=== PATIENT | female | born 1965 | race Caucasian/White ===

== ENCOUNTER 2016-04-01 15:22 | Inpatient (IN) | payer MEDICARE ==
--- NOTE | ~2016-04-01 | CR63 ---
[facility] A Service of [facility] RADIOLOGY TEXT RESULTS PATIENT: AYAZ ALLRED LOCATION: [facility] : [birth year] UNIT #: [id number] AGE: [address]: Jarred Aj MD SEX: F ORDER DR: [id number] [facility] [address] [facility]. [place], [place] [address] [id number] I MR#: [id number] Acc #: [id number] NAME: AYAZ ALLRED : 1965 SEX: F STUDY DATE/TIME: 04/02/2016 7:59 UNIT: A PCU ROOM: [facility] STUDY DESCRIPTION: CR Chest 2 View Attending Physician: Sonia Aj M.D. Ordering Physician: Sonia Aj M.D. Primary Care Physician: Nicole Green M.D. MEDICAL IMAGING REPORT This report is preliminary unless electronic signature is present EXAM Two-view chest, 04/02/2016. INDICATION 51-year-old female with COPD, chest pain, vomiting, short of air, diarrhea. Symptoms since yesterday. TECHNIQUE Frontal chest was performed. COMPARISON STUDIES Correlation is made with chest x-ray 04/01/[address] chest 04/01/2016, PE protocol. FINDINGS Cardiac silhouette is within normal limits. The patient is status post aortic valve replacement. Lungs are hyperinflated. Vascularity unremarkable. Calcified granulomas are present. No effusion, pneumothorax, or dense consolidation. IMPRESSION Chronic lung changes. No definite superimposed active disease. Dictated by... Koffi Peñaloza M.D. THIS IS AN ELECTRONICALLY VERIFIED REPORT Koffi Peñaloza M.D. at 04/02/2016 5:45 PM ADOLFO/keon TD: 04/02/2016 12:16 [facility] A Service of [facility] RADIOLOGY TEXT RESULTS PATIENT: AYAZ ALLRED LOCATION: [facility] 331- : [birth year] UNIT #: [id number] AGE: [address]: Jarred Aj MD SEX: F ORDER DR: HERI #: [id number] MEDICAL IMAGING REPORT COPY
--- NOTE | ~2016-04-01 | A ---
[facility] Nutrition Therapy DATE: 04/02/16 Patient: AYAZ ALLRED Physician: RUTH Address: [address] [place] [address] Room/Bed: [address] [place] [address], Zip: [place] [address] Admit Date: 04/01/16 Date of : 65 Height: 5 5 Weight: 119 54.2 NUTRITIONAL ASSESSMENT: REASON: 2 points nutrition screen risk RE: chewing difficulty and eating poorly 51 yo female admitted for chest pain and vomiting, COPD exacerbation PMH: PE, chronic respiratory failure, cholecystectomy, abdominal swelling and distension s/p bowel resection and hernia repair, ?DM, aortic valve replacement, CAD Anthropometrics: HT: 65" Wt: 55.2 kg BMI: 20.3 Labs: Gluc 133 Meds: Solu-medrol, phenergan, NaCl, lopressor, protonix I/O & Bowel function: 720/3, last BM 04/01 Skin Integrity: noted Edema: none noted Diet: Regular Assessment: Chart reviewed, events noted. RD spoke with the pt at bedside. Pt reports decreased appetite and wt loss of unknown amount due to a "stomach bug". Pt reports that she has been having n/v and diarrhea for months now, and is eating better now that she is in the hospital and feelings better. H/o abdominal swelling s/p bowel resection noted. Pt reportedly drinks two Ensure per day when she can afford it. RD will order Ensure BID, provided the pt with coupons. Pt denied having any questions regarding her diet. 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 Intervention: 1. Regular diet 2. Ensure BID Monitoring, Evaluation and Goals: 1. Oral intake; tolerate >50-75% of meals 2. Labs; WNL: HgbA1C, glucose 3. Weight; prevent further weight loss, maintain wt Recommendations: [facility] Nutrition Therapy DATE: 04/02/16 Patient: AYAZ ALLRED Physician: RUTH Address: [address] [place] [address] Room/Bed: [address] [place] [address], Zip: [place] [address] Admit Date: 04/01/16 Date of : [birth year] Height: 5 5 Weight: 119 54.2 1. Continue regular diet. 2. Recommend checking the pt's HgbA1C, as she has a h/o DM; however, previous HgbA1C in [facility] was WNL. If the pt's has elevated blood glucose levels and HgbA1C, recommend adding consistent carbohydrate diet restriction. 3. Ensure vanilla BID for supplemental nutrition. Pt is at mild-moderate nutritional risk. Respectfully, PATTI JORDAN RD, LD Food and Nutritional Services [facility] cc: client file
--- NOTE | ~2016-04-01 | CR72 ---
[facility] A Service of [facility] RADIOLOGY TEXT RESULTS PATIENT: AYAZ ALLRED LOCATION: [facility] 331-01 : [birth year] UNIT #: [id number] AGE: [address]: Jarred Aj MD SEX: F ORDER DR: [id number] [facility] [address] [place], [place] [address] [id number] E MR#: [id number] Acc #: [id number] NAME: AYAZ ALLRED : 1965 SEX: F STUDY DATE/TIME: 04/01/2016 15:11 UNIT: [facility] ROOM: STUDY DESCRIPTION: CR Chest Single View Portable Attending Physician: Raj Giraldo M.D. Ordering Physician: Raj Giraldo M.D. Primary Care Physician: Nicole Green M.D. MEDICAL IMAGING REPORT This report is preliminary unless electronic signature is present EXAM Portable chest. HISTORY Chest pain and dyspnea for 3 days. COMPARISON STUDIES 12/15/2015 FINDINGS A portable view of the chest was obtained. The heart size and vascularity are normal and the lungs are clear. The bones are unremarkable. There is a prosthetic heart valve present. IMPRESSION No active disease. Dictated by... Speedy Cerna M.D. THIS IS AN ELECTRONICALLY VERIFIED REPORT Speedy Cerna M.D. at 04/02/2016 8:24 AM KIMBERLY/keon TD: 04/01/2016 16:53 JOB #: [id number] MEDICAL IMAGING REPORT COPY
--- NOTE | ~2016-04-01 | DS ---
Unit #: [id number] #: [id number] Patient: AYAZ RIVERA [id number] [facility] [place] [facility]. [place], [place] [address] [id number] I MR#: [id number] NAME: AYAZ RIVERA ROOM: 331 Age: 51 Sex: F Admission Date: 04/01/2016 : 1965 Discharge Date: 04/06/2016 Attending Physician: Sonia Aj M.D. Primary Care Physician: Nicole Green M.D. DISCHARGE SUMMARY FINAL DIAGNOSES 1. Acute exacerbation of chronic obstructive pulmonary disease. 2. Severe anxiety syndrome, also status post valve replacement. 3. Hypertension, difficult to control. PROCEDURES PE protocol CT. Ms. Rivera is a 51-year-old female with a history of COPD who was admitted through the ER for exacerbation of CPD. She had very significant anxiety and was given a shot of Haldol one time because of her anxiety. She improved over time and steroids have been decreased and she is ready for discharge. We did have difficulty with blood pressure and in fact her blood pressure was as high as 149/108, today 174/108 yesterday. I am thinking some of this is driven by anxiety, particularly in the hospital setting. She is on metoprolol 25 mg daily; and although we had started Norvasc, I think it would better to simply increase her metoprolol to b.i.d. She will be discharged on 04/06/2016. DISCHARGE MEDICATIONS She will be on the following medicines: 1. DuoNeb q.i.d. and p.r.n. 2. Prednisone 40 mg p.o. daily, decreasing by 10 mg every three days. 3. Lovenox 60 mg subcutaneously b.i.d., which is indeed her home dose. 4. Lyrica 150 mg p.o. t.i.d. 5. Zoloft 100 mg p.o. b.i.d. 6. Phenergan 25 mg p.o. q.6 p.r.n. 7. Bentyl 20 mg p.o. q.4 p.r.n. 8. Seroquel 400 mg p.o. daily. 9. Ambien CR 12.5 p.o. at bedtime. 10. Xanax 2 mg p.o. b.i.d., which supposedly is her home dose. 11. Metoprolol 25 mg p.o. b.i.d. 12. Percocet 10/325 q.6 p.r.n. 13. Protonix 40 mg p.o. daily. 14. Flexeril 10 mg p.o. t.i.d. 15. Doxycycline 100 mg p.o. b.i.d. 16. It is notable that I am not changing any of her anxiety/psychiatric medicines. I am neither condoning nor manipulating these medicines and I leave that completely to her primary doc or psychiatric doc, and will leave her exactly on the medicines that she came in with. FOLLOWUP She should see us in three to four weeks. She should followup with her primary doctor. [place] was fair. Unit #: [id number] #: [id number] Patient: AYAZ RIVERA It is notable further that she did have a reaction to Zithromax, which should have been stopped and she was then changed to doxycycline. It is also notable that there was a libby on her x-ray about pulmonary hypertension. Unfortunately the last echo we have available is 2011 and at that time RVSP is not specifically stated but there was trace tricuspid regurgitation but no mention of pulmonary hypertension. She most likely has another echo, which will need to be tracked down as an outpatient. We will therefore, need to evaluate her for the presence of pulmonary hypertension. If that is indeed substantiated on the echocardiogram. It is furthermore notable that she have a PE protocol CT on arrival I assume, which revealed significant emphysema. She will definitely need another CT on followup in about six months. This will need to be communicated with her. Dictated by... Jose Luis Aranda M.D. GIA/terrance TD: 04/08/2016 08:02 JOB #: [id number] DISCHARGE SUMMARY X Jose Luis Aranda MD DISCHARGE SUMMARY
--- NOTE | ~2016-04-01 | HP ---
Unit #: [id number] #: [id number] Patient: AYAZ ALLRED [id number] [facility]. [place], [place] [address] [id number] I MR#: [id number] NAME: AYAZ ALLRED ROOM: 331 Age: 51 Sex: F Admission Date: 04/01/2016 : 1965 Attending Physician: Sonia Aj M.D. Primary Care Physician: Nicole Green M.D. HISTORY AND PHYSICAL HISTORY OF PRESENT ILLNESS This is a lady with a history of COPD lastly discharged on December 22, 2015. The patient has a past medical history of acute exacerbations of COPD, acute on chronic respiratory failure as well as mitral regurgitation and lower extremity edema and history of seizure disorder. Patient presents at this time with a history of worsening shortness of breath for several days. No fevers; no chills; and no nausea, vomiting, or diarrhea. Patient's sats were in the 80s on room air. Therefore, patient was admitted for acute on chronic respiratory failure. Patient did not have significant fevers or chills. Does not know any sick contacts. REVIEW OF SYSTEMS As per the history of present illness. PAST MEDICAL HISTORY Significant for aortic valve replacement and ascending aorta replacement. Patient is on Lovenox due to failure of oral medications. Patient has a history of coronary disease, status post PCI and stent; history of diabetes mellitus; history of mitral regurgitation; history of previous pulmonary embolism; history of seizure disorder; history of congestive hepatopathy and abdominal distension; history of back surgery, hysterectomy, appendectomy, and cholecystectomy. MEDICATIONS Her medications on admission include: 1. Protonix 40 mg daily. 2. Bentyl 20 mg every 4 hours. 3. Lovenox 60 mg subcu. twice daily. 4. Phenergan 12.5 mg every 6 hours. 5. Lyrica 150 mg p.o. 3 times daily. 6. Percocet 1 tab every 6 hours p.r.n. 7. Flexeril 10 mg p.o. 3 times daily. 8. Ambien CR 12.5 mg at bedtime. 9. SEROquel 400 mg daily. 10. Zoloft 100 mg twice daily. 11. Xanax 0.25 mg p.o. twice daily. 12. Metoprolol 25 mg daily. SOCIAL HISTORY Significant for no alcohol and no polysubstance use. Positive tobacco use. ALLERGIES Patient is allergic to adhesive. Unit #: [id number] #: [id number] Patient: AYAZ ALLRED FAMILY HISTORY Significant for heart disease in her mom and her father. Lung disease in her grandmother. REVIEW OF SYSTEMS As per history of present illness. PHYSICAL EXAMINATION VITAL SIGNS: T. current 98.6, pulse 72, respiratory rate 20, blood pressure 182/90, and satting 94%. Ins and outs 720 in and (1) out. * DIAGNOSTIC STUDIES LABORATORY: Legionella antigen and pneumococcal antigen are negative. White count 4.1, hemoglobin 13.8, and platelets of 204. Procalcitonin is less than 0.05. Urinalysis is negative. Beta natriuretic peptide is 34. Blood gas: 7.39, 40, and 49.3 on room air. IMAGING: Chest x-ray shows no active disease. CT angio of chest shows no pulmonary embolism and a few scattered little tiny nodules. ASSESSMENT AND PLAN 1. COPD exacerbation. 2. Acute on chronic respiratory failure. Steroids and antibiotics. Patient is apparent allergic to azithromycin so we are switching it out for doxycycline. Try to get a sputum culture. Other than that, as patient is improving, tomorrow will start weaning down steroids and may be able to discharge patient home in 2-3 days. *Faxed to Dr. Aj's office on 04/03/16 for completion of dictation. cd Dictated by Dilia Valentine/kathleen TD: 04/03/2016 06:42 JOB #: [id number] HISTORY AND PHYSICAL X Jarred Aj MD X HISTORY AND PHYSICAL
--- NOTE | ~2016-04-01 | CR63 ---
[facility] A Service of [facility] RADIOLOGY TEXT RESULTS PATIENT: AYAZ ALLRED LOCATION: [facility] : 65 UNIT #: [id number] AGE: [address]: Jarred Aj MD SEX: F ORDER DR: [id number] [facility] [address] [facility]. [place], [place] [address] [id number] I MR#: [id number] Acc #: [id number] NAME: AYAZ ALLRED : 1965 SEX: F STUDY DATE/TIME: 04/04/2016 8:35 [facility] STUDY DESCRIPTION: CR Chest 2 View Attending Physician: Sonia Aj M.D. Ordering Physician: Sonia Aj M.D. Primary Care Physician: Nicole Green M.D. MEDICAL IMAGING REPORT This report is preliminary unless electronic signature is present EXAM Chest 2 views 04/04/2016 INDICATIONS Shortness of air in a 51-year-old female. COPD. Symptoms 3 days. History of skin cancer. TECHNIQUE 2 views of the chest were performed. COMPARISON 04/03/2016 FINDINGS There is gaseous distension of the splenic flexure. The patient is status post aortic valve replacement. Cardiac silhouette is within normal limits. The vascularity is unremarkable. Lungs mildly hyperinflated but clear. No pneumothorax. No effusion. IMPRESSION 1. Mild pulmonary hyperinflation. Otherwise negative chest. No significant change. Dictated by... Koffi Peñaloza M.D. THIS IS AN ELECTRONICALLY VERIFIED REPORT Koffi Peñaloza M.D. at 04/04/2016 4:47 PM ADOLFO/ivone TD: 04/04/2016 12:54 JOB #: [id number] [facility] A Service of [facility] RADIOLOGY TEXT RESULTS PATIENT: AYAZ ALLRED LOCATION: [facility] : [birth year] UNIT #: [id number] AGE: [address]: Jarred Aj MD SEX: F ORDER DR: MEDICAL IMAGING REPORT COPY
--- NOTE | ~2016-04-01 | CR63 ---
[facility] A Service of [facility] RADIOLOGY TEXT RESULTS PATIENT: AYAZ ALLRED LOCATION: [facility] 331- : [birth year] UNIT #: [id number] AGE: [address]: Jarred Aj MD SEX: F ORDER DR: [id number] [facility] [address] [facility] [place], [place] [address] [id number] I MR#: [id number] Acc #: [id number] NAME: AYAZ ALLRED : 1965 SEX: F STUDY DATE/TIME: 04/03/2016 7:22 UNIT: [address] ROOM: [facility] STUDY DESCRIPTION: CR Chest 2 View Attending Physician: Sonia Aj M.D. Ordering Physician: Sonia Aj M.D. Primary Care Physician: Nicole Green M.D. MEDICAL IMAGING REPORT This report is preliminary unless electronic signature is present EXAM Chest x-ray, 04/03/2016. HISTORY 51-year-old female complaining of shortness of air, chest pain and vomiting since 04/01/2016. TECHNIQUE PA and lateral upright chest series. FINDINGS The exam shows no active disease in the chest. Postop changes aortic valve replacement. Heart size and pulmonary vascularity are normal. The lungs are clear. No visible pulmonary infiltrate or pleural effusion. Coronary artery stent. No change since 04/02/2016. IMPRESSION No active disease. No change since yesterday. Dictated by... Arthur Nicolas M.D. THIS IS AN ELECTRONICALLY VERIFIED REPORT Arthur Nicolas M.D. at 04/03/2016 4:00 PM RGW/keon TD: 04/03/2016 09:57 JOB #: [id number] MEDICAL IMAGING REPORT COPY
--- NOTE | ~2016-04-01 | CT16 ---
[facility] A Service of [facility] RADIOLOGY TEXT RESULTS PATIENT: AYAZ ALLRED LOCATION: [facility] 331-01 : [birth year] UNIT #: [id number] AGE: [address]: Jarred Aj MD SEX: F ORDER DR: [id number] [facility] [address] [facility]. [place], [place] [address] [id number] I MR#: [id number] Acc #: [id number] NAME: AYAZ ALLRED : 1965 SEX: F STUDY DATE/TIME: 04/01/2016 16:16 UNIT: [facility] ROOM: [id number] STUDY DESCRIPTION: CT Angio Chest for PE Attending Physician: Sonia Aj M.D. Ordering Physician: Raj Giraldo M.D. Primary Care Physician: Nicole Green M.D. MEDICAL IMAGING REPORT This report is preliminary unless electronic signature is present EXAM CT chest, PE protocol. INDICATIONS 51-year-old female with chest pain for 2 days. Comparison with 11/27/2011. TECHNIQUE This CT exam was performed with one or more of the following radiation dose reduction techniques: Automatic exposure control, adjustment of mA and/or kV according to patient size, and iterative reconstruction. FINDINGS There is no evidence of pulmonary embolism. There is no suspicious lymphadenopathy. There is no pleural effusion. Emphysema. There is a hazy, small, nodular density in the posterior right upper lobe on image 53, which is new. It is nonspecific and may be infectious or inflammatory. There is also a tiny nodule in the medial left lower lobe on image 92, which is also new. I would suggest a [address] to document clearing of these findings. Postoperative changes of aortic valve replacement. Limited imaging of the upper abdomen is unremarkable. The bone windows are unremarkable. IMPRESSION 1. No evidence of pulmonary embolism. 2. Emphysema. 3. Tiny nodular densities as described above are nonspecific and may be infectious or inflammatory. Recommend a followup chest CT in 6 months to document clearing. Dictated by... Sanjay Fleming M.D. [facility] A Service of [facility] RADIOLOGY TEXT RESULTS PATIENT: AYAZ ALLRED LOCATION: [facility] 331-01 : [birth year] UNIT #: [id number] AGE: [address]: Jarred Aj MD SEX: F ORDER DR: THIS IS AN ELECTRONICALLY VERIFIED REPORT Sanjay lFeming M.D. at 04/02/2016 10:04 AM CHUCKY/silvia TD: 04/01/2016 21:08 JOB #: [id number] MEDICAL IMAGING REPORT COPY
--- NOTE | ~2016-04-01 | EKG ---
PATIENT: AYAZ ALLRED UNIT #: [id number] Ventricular Rate: 78 BPM Atrial Rate: 78 BPM P-R Interval: 136 ms QRS Duration: 96 ms Q-T Interval: 408 ms QTC Calculation(Bezet): 465 ms P Cl[place]: 71 degrees Calculated R [place]: 32 degrees Calculated T [place]: 82 degrees Diagnosis Line: Normal sinus rhythm Diagnosis Line: Biatrial enlargement Diagnosis Line: Low voltage QRS Diagnosis Line: Nonspecific ST abnormality Diagnosis Line: Abnormal ECG Diagnosis Line: When compared with ECG of 16-DEC-2015 06:26, Diagnosis Line: No significant change was found Diagnosis Line: Confirmed by NATALIE MILLAN MD ([id number]) on Diagnosis Line: 04/01/2016 11:00:31 PM INTERPRETING MD: RYAN
[2016-04-01 14:35] LABS: BASOPHIL% 0.6 % (0-2.5); EOSINOPHIL# 0.1 X10e3 (0-0.7); EOSINOPHIL% 0.9 % (0.0-7.0); HEMATOCRIT 40.5 % (35.0-45.0); HEMOGLOBIN 13.6 gm/dL (12.0-16.0); LYMPHOCYTE# 1.5 X10e3 (1.0-3.5); LYMPHOCYTE% 28.5 % (17.0-45.0); MEAN CELL VOLUME 89.5 FL (83-96); MEAN CORPUSCULAR HEMOGLOBIN 30.2 PG (28-34); MEAN CORPUSCULAR HGB CONC 33.7 g/dL (30-36); MEAN PLATELET VOLUME 7.3 FL (6.5-11.5); MONOCYTE# 0.5 X10e3 (0-1.0); MONOCYTE% 9.8 % (3.0-12.0); NEUTROPHIL# 3.3 X10e3 (1.5-7.1); NEUTROPHIL% 60.2 % (40-75); PLATELET COUNT 205 X10e3 (140-420); RED BLOOD COUNT 4.52 X10e (3.90-5.30); RED CELL DISTRIBUTION WIDTH 16.5 % (11.0-15.5); WHITE BLOOD COUNT 5.4 X10e3 (4.0-10.5)
[2016-04-01 14:42] LABS: DIFF IND NO
[2016-04-01 14:46] LABS: ARTERIAL BLD GAS O2 SATURATION 82.5 % (90.0-100.0); ARTERIAL BLOOD GAS CARBOXY HB 2.4 %sat (0.0-9.0); ARTERIAL BLOOD GAS HCO3 24.3 mmol/L; ARTERIAL BLOOD GAS MET HB 0.9 %sat (0.0-2.0); ARTERIAL BLOOD GAS PCO2 40.2 mmHg (35.0-45.0)
[2016-04-01 14:47] LABS: ARTERIAL BLOOD GAS ALLEN TEST POS; ARTERIAL BLOOD GAS ART SITE RIGHT RADIAL; ARTERIAL BLOOD GAS PO2 49.3 mmHg (80.0-100); ARTERIAL DRAW? YES
[2016-04-01 14:48] LABS: URINE SOURCE CLEAN CATCH
[2016-04-01 14:57] LABS: POC - CKMB <1.0 ng/mL (0.0-7.9); POC - TROPONIN <0.05 ng/mL (<=0.05)
[2016-04-01 15:00] LABS: PARTIAL THROMBOPLASTIN TIME 27.9 SECONDS (23.5-31.3); PROTHROMBIN TIME (PATIENT) 10.1 SECONDS (9.6-11.5)
[2016-04-01 15:08] LABS: ALBUMIN SERUM 4.6 g/dL (3.5-5.0); ALKALINE PHOSPHATASE 122 U/L (32-92); ALT (SGPT) 42 U/L (10-40); AST (SGOT) 18 U/L (10-42); BILIRUBIN, DIRECT 0.1 mg/dL (0.0-0.2); BILIRUBIN,INDIRECT 0.5 mg/dL (0.0-0.9); BILIRUBIN,TOTAL 0.6 mg/dL (0.2-2.0); BLOOD UREA NITROGEN 11 mg/dL (9-23); BUN/CREATININE RATIO 18.33; CALCIUM SERUM 9.1 mg/dL (8.4-10.2); CARBON DIOXIDE 22 mmol/L (22-31); CHLORIDE 100 mmol/L (100-111); CREATININE SERUM 0.6 mg/dL (0.6-1.4); GLOM FILT RATE Estimated ABOVE60 mL/min (>60); GLUCOSE FASTING 84 mg/dL (70-110); LIPASE 38 U/L (22-51); POTASSIUM 3.9 mmol/L (3.5-5.1); PROTEIN TOTAL SERUM 7.9 g/dL (6.0-8.3); SODIUM 132 mmol/L (135-145)
[2016-04-01 15:09] LABS: URINE APPEARANCE CLEAR; URINE BILIRUBIN NEG (NEG); URINE BLOOD NEG (NEG); URINE COLOR YELLOW; URINE GLUCOSE NEG (NEG); URINE KETONE NEG (NEG); URINE LEUKOCYTE ESTERASE NEG (NEG); URINE NITRATE NEG (NEG); URINE PROTEIN NEG (NEG); URINE SPECIFIC GRAVITY 1.017 (1.003-1.035); URINE UROBILINOGEN 0.2 MG/DL (NEG)
[2016-04-01 15:15] LABS: CULTURE INDICATED? NO
[~2016-04-01 15:22] MED LIST: ALBUTEROL17 G1 IH; AMBIEN CR PO; AMBIEN PO; AMBIEN12.5 M1 PO; AMITIZA8 MCG PO; ASPIRIN81 M1 PO; ATIVAN PO; ATIVAN2 MG PO; AZITHROMYCIN250 MG PO; AZITHROMYCIN500 MG PO; BENTYL20 MG PO; COLACE PO; COMBIVENT INH14.7 GM INH; COMPAZINE10 MG PO; COUMADIN PO; COUMADIN6 MG PO; CYMBALTA; DICYCLOMINE HCL20 MG PO; DIFLUCAN200 MG PO; DISCONTINUED MED; DONNATAL TABL16.2 MG PO; ENOXAPARIN40 MG/0.4 SQ; ESTRATEST TABLE1 TAB; ESTRODERM TOP; FELDENE20 MG PO; FLEXERIL10 MG PO; GABITRIL4 MG; IMITREX PO; KLONOPIN PO; LEVAQUIN PO; LEVAQUIN250 MG DOB; LIBRAX CAPSULE1 CAP; LIPITOR20 MG PO; LISINOPRIL10 MG PO; LOPRESSOR; LOPRESSOR PO; LORTAB 10/500 T1 TAB PO; LOVENOX SUBQ; LOVENOX30 MG/0.3 IJ; LOVENOX80 MG/0.8 SUBQ; LYRICA PO; LYRICA75 MG PO; MAALOX SUSPENSI30 ML; MEDROL DOSEPAK4 MG DOB; METOPROLOL TAR25 MG PO; NAPROSYN500 MG PO; NEXIUM PO; NORCO 10/325 TA1 TAB; NORVASC2.5 MG PO; OMNICEF300 MG PO; PAIN RELIEF325 MG PO; PATIENT'S PHARMACY; PERCOCET 10/3251 TAB PO; PERCOCET10 PO; PHENERGAN; PHENERGAN PO; PHENERGAN25 M1 PO; PHENERGAN25 MG PO; PLAVIX PO; PREDNISONE; PREDNISONE10 MG; PREDNISONE10 MG PO; PROTONIX PO; PROTONIX20 MG PO; REGLAN PO; REGLAN10 MG PO; REGLAN5 MG PO; SEROQUEL; SEROQUEL PO; SEROQUEL XR200 MG PO; SOMA; SOMA PO; STERAPRED5 MG/DOSE1 PO; SYMBICORT INH; TOPROL XL PO; TRAZODONE PO; TRILEPTAL; TYLENOL325 M1 PO; VIBRAMYCIN100 M1 PO; VOLTAREN75 MG PO; WARFARIN SODIUM6 M1 PO; WELLBUTRIN SR PO; XANAX2 MG PO; ZOFRAN PO; ZOLOFT PO; ZOLOFT100 MG PO; [UNRECOGNIZED DRUG - OTHER] PO
[2016-04-01 16:09] LABS: POC - CKMB <1.0 ng/mL (0.0-7.9); POC - TROPONIN <0.05 ng/mL (<=0.05)
[2016-04-01] MEDS ORDERED: PROTONIX PO (17:18)
[2016-04-01] MEDS ORDERED: BENTYL20 MG PO (17:19)
[2016-04-01] MEDS ORDERED: LOVENOX SUBQ (17:19)
[2016-04-01] MEDS ORDERED: LYRICA PO (17:20)
[2016-04-01] MEDS ORDERED: PERCOCET 10/3251 TAB PO (17:20)
[2016-04-01] MEDS ORDERED: PHENERGAN25 MG PO (17:20)
[2016-04-01] MEDS ORDERED: FLEXERIL10 MG PO (17:21)
[2016-04-01] MEDS ORDERED: AMBIEN CR12.5 MG/BL PO (17:21)
[2016-04-01] MEDS ORDERED: SEROQUEL400 MG PO (17:37)
[2016-04-01] MEDS ORDERED: XANAX2 MG PO (18:01)
[2016-04-01] MEDS ORDERED: ZOLOFT100 MG PO (18:01)
[2016-04-01] MEDS ORDERED: METOPROLOL TAR25 MG PO (18:02)
[2016-04-02 05:46] LABS: HEMATOCRIT 40.9 % (35.0-45.0); HEMOGLOBIN 13.8 gm/dL (12.0-16.0); MEAN CELL VOLUME 90.6 FL (83-96); MEAN CORPUSCULAR HEMOGLOBIN 30.5 PG (28-34); MEAN CORPUSCULAR HGB CONC 33.7 g/dL (30-36); MEAN PLATELET VOLUME 7.6 FL (6.5-11.5); RED BLOOD COUNT 4.52 X10e (3.90-5.30); RED CELL DISTRIBUTION WIDTH 16.4 % (11.0-15.5); WHITE BLOOD COUNT 4.1 X10e3 (4.0-10.5)
[2016-04-02 06:30] LABS: ALBUMIN SERUM 4.3 g/dL (3.5-5.0); ALKALINE PHOSPHATASE 120 U/L (32-92); ALT (SGPT) 41 U/L (10-40); AST (SGOT) 20 U/L (10-42); BILIRUBIN,TOTAL 0.4 mg/dL (0.2-2.0); BLOOD UREA NITROGEN 11 mg/dL (9-23); BUN/CREATININE RATIO 18.33; CALCIUM SERUM 9.5 mg/dL (8.4-10.2); CARBON DIOXIDE 22 mmol/L (22-31); CHLORIDE 107 mmol/L (100-111); CREATININE SERUM 0.6 mg/dL (0.6-1.4); GLOM FILT RATE Estimated ABOVE60 mL/min (>60); GLUCOSE FASTING 133 mg/dL (70-110); POTASSIUM 4.6 mmol/L (3.5-5.1); PROTEIN TOTAL SERUM 7.5 g/dL (6.0-8.3); SODIUM 136 mmol/L (135-145)
[2016-04-02 12:50] LABS: LEGIONELLA AG URINE NEG (NEG)
[2016-04-03 06:51] LABS: HEMATOCRIT 40.3 % (35.0-45.0); HEMOGLOBIN 13.4 gm/dL (12.0-16.0); MEAN CELL VOLUME 89.6 FL (83-96); MEAN CORPUSCULAR HEMOGLOBIN 29.8 PG (28-34); MEAN CORPUSCULAR HGB CONC 33.2 g/dL (30-36); MEAN PLATELET VOLUME 7.4 FL (6.5-11.5); RED BLOOD COUNT 4.5 X10e (3.90-5.30); RED CELL DISTRIBUTION WIDTH 16.7 % (11.0-15.5); WHITE BLOOD COUNT 4.2 X10e3 (4.0-10.5)
[2016-04-03 07:24] LABS: BLOOD UREA NITROGEN 16 mg/dL (9-23); CALCIUM SERUM 9.3 mg/dL (8.4-10.2); CARBON DIOXIDE 22 mmol/L (22-31); CHLORIDE 106 mmol/L (100-111); CREATININE SERUM 0.5 mg/dL (0.6-1.4); GLOM FILT RATE Estimated ABOVE60 mL/min (>60); GLUCOSE FASTING 98 mg/dL (70-110); POTASSIUM 4.2 mmol/L (3.5-5.1); SODIUM 136 mmol/L (135-145)
[2016-04-04 13:57] LABS: HEMATOCRIT 48.2 % (35.0-45.0); MEAN CELL VOLUME 90.5 FL (83-96); MEAN CORPUSCULAR HEMOGLOBIN 30.3 PG (28-34); MEAN CORPUSCULAR HGB CONC 33.5 g/dL (30-36); MEAN PLATELET VOLUME 7.5 FL (6.5-11.5); RED BLOOD COUNT 5.33 X10e (3.90-5.30); RED CELL DISTRIBUTION WIDTH 16.7 % (11.0-15.5); WHITE BLOOD COUNT 5.9 X10e3 (4.0-10.5)
[2016-04-04 14:00] LABS: HEMOGLOBIN 16.1 gm/dL (12.0-16.0)
[2016-04-04 14:54] LABS: BLOOD UREA NITROGEN 20 mg/dL (9-23); BUN/CREATININE RATIO 28.57; CALCIUM SERUM 10.1 mg/dL (8.4-10.2); CARBON DIOXIDE 20 mmol/L (22-31); CHLORIDE 106 mmol/L (100-111); CREATININE SERUM 0.7 mg/dL (0.6-1.4); GLOM FILT RATE Estimated ABOVE60 mL/min (>60); GLUCOSE FASTING 90 mg/dL (70-110); POTASSIUM 4.2 mmol/L (3.5-5.1); SODIUM 140 mmol/L (135-145)
[2016-04-05 07:08] LABS: BLOOD UREA NITROGEN 25 mg/dL (9-23); BUN/CREATININE RATIO 35.71; CALCIUM SERUM 9.7 mg/dL (8.4-10.2); CARBON DIOXIDE 21 mmol/L (22-31); CHLORIDE 107 mmol/L (100-111); CREATININE SERUM 0.7 mg/dL (0.6-1.4); GLOM FILT RATE Estimated ABOVE60 mL/min (>60); GLUCOSE FASTING 98 mg/dL (70-110); POTASSIUM 4.3 mmol/L (3.5-5.1); SODIUM 139 mmol/L (135-145)
[2016-04-06] MEDS ORDERED: COMBIVENT U/D3 M2 INH (12:42)
[2016-04-06] MEDS ORDERED: METOPROLOL TAR25 MG PO (12:44)
[2016-04-06] MEDS ORDERED: PHENERGAN25 M1 PO (12:47)
[2016-04-06] MEDS ORDERED: DOXYCYCLINE150 MG PO (12:50)
[2016-04-06] MEDS ORDERED: PREDNISONE PO (12:51)
[2016-10-17] MEDS ORDERED: NEURONTIN100 MG PO (12:42)
[2016-10-17] MEDS ORDERED: PHENERGAN25 MG PO (12:42)
[2016-10-17] MEDS ORDERED: AMBIEN12.5 M1 PO (12:43)
[2016-10-24] MEDS ORDERED: LYRICA75 MG PO (16:51)
[2016-10-24] MEDS ORDERED: FLEXERIL10 MG PO (16:51)
[2016-10-24] MEDS ORDERED: LOVASTATIN10 MG PO (16:52)
== END 2016-04-06 13:51 | disposition home or self-care (01) | DRG 189 ==
LOC: CED 15:22 → CEDOF 17:25 → C3A PCU 21:25
PROVIDERS: Emergency Medicine; Internal Medicine Pulmonary Disease
PROC: B32TYZZ Computerized Tomography (CT Scan) of Left Pulmonary Artery using Other Contrast (ICD-10-PCS; principal; 2016-04-01)
PROC: B32SYZZ Computerized Tomography (CT Scan) of Right Pulmonary Artery using Other Contrast (ICD-10-PCS; 2016-04-01)
DX: J96.20 Acute and chronic respiratory failure, unspecified whether with hypoxia or hypercapnia (principal); J44.1 Chronic obstructive pulmonary disease with (acute) exacerbation; I10 Essential (primary) hypertension; F41.9 Anxiety disorder, unspecified; R21 Rash and other nonspecific skin eruption
CPT/HCPCS: 36600; 71010; 71020; 71275; 80048; 80053; 80076; 81003; 82308; 82553; 82803; 83690; 83880; 84484; 85025; 85027; 85610; 85730; 87070; 87449; 87633; 87899; 93005; 94640; 94760; 96361; 96374; 96375; 99291; C9113; J0360; J0456; J1650; J2270; J2405; J2920; J2930; Q9967

== ENCOUNTER 2016-09-17 12:35 | Inpatient (IN) | payer MEDICARE ==
[~2016-09-17] VITALS: Ht 165.1 cm; Wt 52.8 kg
--- NOTE | ~2016-09-17 | CO ---
Unit #: [id number] #: [id number] Patient: AYAZ ALLRED [id number] [place], [place] [address] [id number] I MR#: [id number] NAME: AYAZ ALLRED ROOM: 227 Age: 51 Sex: F Admission Date: 09/17/2016 : 1965 Attending Physician: Rk Stark Jr., M.D. Primary Care Physician: Nicole Green M.D. Requesting Physician: Rk Stark Jr., M.D. Consultation Date: 09/17/2016 CONSULTATION REPORT REASON FOR CONSULT Seizure. HISTORY OF PRESENT ILLNESS This pleasant 51-year-old female with COPD, anticoagulated for history of DVT, PE, and aortic valve replacement, with history of pseudoseizures and anxiety, is seen stat for a seizure. The patient takes high-dose Xanax; last dose was yesterday morning as she had a procedure today. Today, the patient underwent an EGD and colonoscopy for nausea, vomiting, diarrhea, abdominal pain, and difficulty swallowing. She was found to have manas esophagitis. When she returned to the floor, she had a witnessed two minute episode of shaking, and she was confused afterwards. Did not lose continence of her urine and did not bite her tongue. Although she does have a history of pseudoseizures, again, she does take high-dose Xanax, and her last dose was yesterday. A call was made to our group, and Ativan was administered. At this time, the patient is more awake and alert. PAST MEDICAL HISTORY 1. Aortic valve replacement and ascending aorta replacement. Patient is anticoagulated with Lovenox due to failure of oral medications. 2. Coronary artery disease, status post PCI and stent. 3. Diet-controlled AODM. 4. Previous PE and DVT. 5. Pseudoseizures. 6. Chronic obstructive pulmonary disease. 7. Anxiety. 8. Depression. 9. Congestive hepatopathy. 10. Back surgery. 11. Total abdominal hysterectomy and BSO. 12. Appendectomy. 13. Cholecystectomy. 14. Bilateral carpel tunnel release. 15. Tonsillectomy. 16. Partial bowel resection for intussusception. ALLERGIES Adhesive tapes, sulfa, and possibly other medicines. HOME MEDICATIONS 1. Protonix 40 mg daily. 2. Bentyl 20 mg q.4 hours as needed. Unit #: [id number] #: [id number] Patient: AYAZ ALLRED 3. Lovenox 60 mg subcutaneous b.i.d. 4. Lyrica 150 mg t.i.d. 5. Percocet 10/325 q.6 hours as needed. 6. Flexeril 10 mg t.i.d. 7. Seroquel 400 mg b.i.d. 8. Zoloft 100 mg b.i.d. 9. Xanax 2 mg q.i.d. 10. Lopressor 25 mg b.i.d. 11. Phenergan p.r.n. 12. Albuterol q.6 hours as needed. 13. Mevacor 10 mg at bedtime. 14. Symbicort 160/4.5 at 2 puffs b.i.d. FAMILY HISTORY Negative for seizures. SOCIAL HISTORY The patient lives with her aunt and uncle. She smokes an occasional cigarette and does not drink alcohol. REVIEW OF SYSTEMS Notable for aortic valve replacement, CAD, diet-controlled diabetes mellitus, PE, DVT, above-mentioned surgeries, nausea, vomiting, diarrhea, abdominal pain, anxiety, depression, and COPD. All other systems were reviewed and otherwise negative. PHYSICAL EXAMINATION GENERAL: A pleasant, thin, 51-year-old female currently in no acute distress. VITAL SIGNS: Blood pressure 151/77, O2 saturation 96%, temperature around 96.4, respirations 20, and heart rate is 106. HEENT: Eyes PERRLA. Extraocular muscles are intact. Pharynx is benign. NECK: Supple without adenopathy or thyromegaly. CHEST: Mild expiratory wheeze. CARDIAC: Normal S1 and S2 with crisp prosthetic valve sounds. ABDOMEN: Bowel sounds are present. Abdomen is mildly distended and mildly tender without hepatosplenomegaly or masses. Reducible ventral hernia. Multiple well-healed scars. EXTREMITIES: Without edema. Pedal pulses are diminished. NEUROLOGIC: Patient is awake, alert, and oriented. Cranial nerves are intact. Equal strength throughout. Non-tremulous. DIAGNOSTIC STUDIES LABORATORY: None are yet drawn. ASSESSMENT 1. Patient was seen stat for a seizure which was likely benzodiazepine-withdrawal seizures. She does have a history of pseudoseizures as well. 2. Chronic obstructive pulmonary disease. 3. Status post aortic valve replacement, on Lovenox. 4. History of deep venous thromboses and pulmonary emboli, maintained on Lovenox. 5. Manas esophagitis on EGD and colonoscopy today. 6. Anxiety and depression. PLANS 1. Restart Xanax. Unit #: [id number] #: [id number] Patient: AYAZ ALLRED 2. Restart Lovenox. 3. Check stat labs. Thank you very much for this consultation. Will follow with you. Dictated by... Michelle Emerson M.D. MANISHA/bert TD: 09/17/2016 22:18 JOB #: [id number] CONSULTATION REPORT Page 1 of 1 X Michelle Emerson MD CONSULTATION REPORT
--- NOTE | ~2016-09-17 | OR ---
Unit #: [id number] #: [id number] Patient: AYAZ ALLRED [id number] [facility]. [place], [place] [address] [id number] I MR#: [id number] NAME: AYAZ ALLRED ROOM: 227 Date of Procedure: 09/17/2016 Admission Date: 09/17/2016 Surgeon: Rk Stark Jr., M.D. : 1965 Attending Physician: Rk Stark Jr., M.D. Primary Care Physician: Nicole Green M.D. OPERATIVE REPORT INDICATIONS FOR PROCEDURE The patient is a 51-year-old white female, who recently presented to the office complaining of abdominal pain and chronic diarrhea. She has had a known past history for right colectomy and also has had history of colon polyps. She has had some nausea with intermittent vomiting and was felt she could possibly have occult ulcer disease, possible colitis. She is brought in this time for upper and lower endoscopy at her request. She has had her prep at home. PREOPERATIVE DIAGNOSES Possible ulcer disease, possible esophagitis, possible occult colitis or neoplasm. POSTOPERATIVE DIAGNOSES On upper endoscopy, the patient was noted to have evidence of moderate Tawnya esophagitis with moderate hemorrhagic gastritis and on colonoscopy to the distal ileum, she was noted to have evidence of normal findings except for internal hemorrhoids. ANESTHESIA MAC anesthesia. PROCEDURE PERFORMED Flexible fiberoptic esophagogastroduodenoscopy with antral biopsy for Helicobacter pylori and biopsies of the distal esophagus for pathology and flexible colonoscopy to the distal ileum. DESCRIPTION OF PROCEDURE The patient was positioned in Tavares position with left side down. After being given MAC anesthesia, Olympus XQ scope was passed through the proximal esophagus. The entire esophagus showed exudate compatible with Tawnya esophagitis. Several biopsies were taken from the mid esophagus without bleeding and sent to pathology. The scope was then advanced down the prepyloric region, where there was 1+ distal esophagitis, but no stenosis. The scope was advanced through the GE junction and the cardia, and down to the fundic and antral region of the stomach, and retroflexed back up to the area of the cardia. There was no evidence of any significant hiatal hernia, but there were patchy areas of moderate hemorrhagic gastritis. A biopsy was taken from the antrum for H pylori without significant bleeding. The stomach distended well without evidence of rigidity and there was no evidence of any gastric ulcer disease. The scope was advanced down the prepyloric region through the pylorus into the Unit #: [id number] #: [id number] Patient: BROWN,AYAZ duodenal bulb and down to the second portion of the duodenum. The entire duodenal portion examination was within normal limits. The scope was slowly removed. The patient repositioned for colonoscopy. Digital rectal examination was performed, which revealed no palpable mass or tenderness. No blood or stool within the rectal ampulla. The Olympus colonoscope was advanced through the anal canal up the rectum and retroflexed down to the area of the anorectal region. There was no evidence of any fissures. There were some small internal hemorrhoids, but these were not significantly inflamed and not bleeding. The scope was then straightened and advanced up the rectosigmoid, in the sigmoid and descending colon areas, around splenic flexure into the transverse colon, where there was anastomosis between small bowel and the transverse colon. The anastomosis was widely patent. No evidence of any tumors or cancer in the area. There were definitely no polyps noted throughout the entire length of the colon examined. The scope was advanced up the distal ileum approximately 10 to 12 inches. No evidence of any ileitis or inflammatory bowel disease. The scope was slowly removed. There were no tumors, polyps, cancer, or AVMs. No evidence of any colitis, diverticulosis, or diverticulitis. The caliber of the colon appeared normal throughout. The scope was removed. The patient tolerated the procedure well and discharged in satisfactory condition. Dictated by... Rk Stark Jr., M.D. JMB/denny TD: 09/17/2016 17:25 JOB #: [id number] OPERATIVE REPORT Page 1 of 1 X Rk Stark MD X PROCEDURE OPERATIVE NOTE
--- NOTE | ~2016-09-17 | CO ---
Unit #: [id number] #: [id number] Patient: AYAZ ALLRED [id number] [facility] [address] [facility]. [place], [place] [address] [id number] I MR#: [id number] NAME: AYAZ ALLRED ROOM: 227 Age: 51 Sex: F Admission Date: 09/17/2016 : 1965 Attending Physician: Rk Stark Jr., M.D. Primary Care Physician: Nicole Green M.D. Consultation Date: 09/18/2016 CONSULTATION REPORT PRIMARY CARE PHYSICIAN Nicole Green M.D. REASON FOR CONSULTATION Seizures. PATINET IDENTIFICATION This is a 51-year-old, right-handed, female, evaluated in room 227 at [facility]. SOURCE OF INFORMATION Obtained from the patient as well as medical record. HISTORY OF PRESENT ILLNESS This is a very pleasant 51-year-old, right-handed, female with past medical history of anxiety and depression, COPD, seizures versus pseudoseizures, PE, DVT, and aortic valve replacement, on Lovenox, who presents to [facility] for elective EGD and colonoscopy, which was done yesterday. She was noted to have moderate Tawnya esophagitis with moderate hemorrhagic gastritis. Last evening, she was noted to have seizure activity and rapid response was called. Dr. Emerson responded to that call and restarted the patient on her home dose of Xanax and her home medications were resumed. She looks like she received IM dose of Ativan 1 mg prior to PICC line placement, and she had no IV access. She was not noted to have any status epilepticus, and today, she is back to her baseline. She was noted to be somewhat postictal following the event, but eventually became alert and oriented x3. It was apparently a 2-minute episode of shaking and again, she was a little confused following the event, she did not lose continence of her urine, and did not bite her tongue. Today, the patient is back to her baseline, fully oriented x4. She does complain of some mild to moderate abdominal pain, but reports being well controlled with pain medication. Neurology was asked to evaluate further for seizure activity. Of note, the patient takes Lyrica 150 mg t.i.d. She also takes Xanax at home 2 mg four times daily and had stopped those medications along with all of her other medications the morning prior to her procedure. She did not restart those medications until last evening, thus being off those medications for close to 2 days. She denies any new headache, but complains of chronic migraines. She complains of some recent nausea and vomiting related to her abdominal complaints, but denies any fever, chills, or change in routine. She does complain of weight loss, which is part of the reason she presented for elective procedures. She denies any new neurologic symptoms. She reports her last seizure was 1 to 2 years ago and reports Unit #: [id number] #: [id number] Patient: AYAZ ALLRED she is well controlled on Lyrica. She denies any recent illness or injury otherwise or any other complaints. PAST MEDICAL HISTORY 1. Aortic valve replacement. The patient has been coagulated with Lovenox due to failure of oral medications. 2. History of PE and DVT. 3. CAD, status post PCI with stent. 4. Diabetes mellitus type 2. 5. Seizures versus pseudoseizures. She has been evaluated in the past at this facility by Dr. Bryce Adames in [address] Jese Fleming in 2002. She had an MRI and EEG done at that time, which did not appear to be diagnostic of epilepsy. She was seen by Dr. Jacobs in 2011 for questionable seizure event and at that time, she had had abrupt withdrawal of her Xanax and Lyrica as well. 6. Anxiety. 7. Depression. 8. COPD. 9. Chronic pain with back surgery. 10. Total abdominal hysterectomy and bilateral salpingo-oophorectomy in the past. 11. Appendectomy. 12. Cholecystectomy. 13. Bilateral carpal tunnel release. 14. Tonsillectomy. 15. Partial bowel resection for intussusception. 16. Hypertension. ALLERGIES 1. Sulfa. 2. Adhesive. 3. Azithromycin. 4. Ceftriaxone. HOME MEDICATIONS As per medication reconciliation form include, 1. Phenergan 25 mg p.o. q.6 hours p.r.n. nausea. 2. Albuterol every 6 hours p.r.n. extreme shortness of breath. 3. Lovastatin 10 mg p.o. at bedtime. 4. Symbicort one puff inhalation b.i.d. p.r.n. for COPD. 5. Protonix 40 mg p.o. daily. 6. Bentyl 20 mg p.o. q.4 hours p.r.n. pain. 7. Lovenox 60 mg subcu b.i.d. 8. Lyrica 150 mg p.o. t.i.d. 9. Percocet 10/325 p.o. daily p.o. q.6 hours p.r.n. pain. 10. Flexeril 10 mg p.o. three times daily. 11. Seroquel 400 mg p.o. b.i.d. 12. Zoloft 100 mg p.o. b.i.d. 13. Xanax 2 mg p.o. four times daily. 14. Metoprolol tartrate 25 mg p.o. b.i.d. FAMILY HISTORY Negative for seizures. SOCIAL HISTORY The patient lives with her aunt and uncle. She smokes cigarettes on occasion. Denies alcohol use or abuse or illicit drug use. Unit #: [id number] #: [id number] Patient: AYAZ ALLRED REVIEW OF SYSTEMS A 14-point review of systems was done. Pertinent positives are as discussed above, otherwise negative. PHYSICAL EXAMINATION VITAL SIGNS: Temperature 97.7, she has been afebrile on this admission. Pulse 90, respirations 18, blood pressure 136/70, oxygen saturation 95%. Height 5 feet and 5 inches. Weight 116 pounds. BMI 19. NEUROLOGIC: The patient is awake. She is fully alert and oriented to person, place, and time as well as events. No right or left confusion. No finger agnosia. She is not aphasic, dysarthric, or apraxic. Cranial nerve exam, she demonstrates full sorto of vision. Eyes are conjugate. No ptosis or nystagmus. Extraocular movements are intact. Sensation of face and scalp is equal and intact. Strength of muscles and facial expression is normal and equal bilaterally. Hearing is intact to finger rub and conversation. Tongue is midline. Uvula is midline. Palate elevation is normal. Head turning and shoulder shrug are unremarkable. Neck is supple. Motor exam, the patient demonstrates decreased bulk, normal tone. Strength is equal 5/5 in all extremities. Sensory exam intact for soft touch and pinprick sensation. No extinction appreciated. Gait deferred. Romberg deferred. Reflexes, 1/4. Toes are equivocal. Coordination unremarkable. DIAGNOSTIC STUDIES IMAGING STUDIES: As per chart and have been reviewed. Labs; BMP negative. CBC negative. Glucose 116. IMPRESSION 1. Breakthrough seizure activity x1. No evidence of status epilepticus or prolonged event suspect medication related. Home dose of Lyrica and Xanax was restarted last night. 2. History of seizures/pseudoseizures. MRI of the brain and EEGs done in the past. Please see above. 3. Status post EGD and colonoscopy with Tawnya esophagitis and hemorrhagic gastritis. Surgery following. 4. Anxiety. 5. Depression. 6. Chronic pain. 7. History of deep venous thrombosis and pulmonary embolism as well as aortic valve replacement, on Lovenox. PLAN The patient's medications have been restarted. She is stable and no further events. Her last seizure event was 1 to 2 years ago. At this time, no further neurologic workup is indicated. No focal neurologic changes on exam. MRI of the brain done in the past. Procedure protocol is unremarkable and she has had two EEGs in the past as well. Please see her medical record. We will continue her home doses of Lyrica and Xanax. The patient agrees to the plan and does not wish to add any new medications to her regimen. No new medications indicated at this time. We will follow along with you as needed. Please call if needed for any questions or issues. Case was discussed with Dr. Jacobs and he agrees with above assessment and plan. Thank you very much for allowing us to assist in care of this patient. Unit #: [id number] #: [id number] Patient: AYAZ ALLRED Dictated by... Cassandra John A.P.R.N. for Dilia Farooq/denny TD: 09/19/2016 12:15 JOB #: [id number] CC: Sovera/invision Please Delete CONSULTATION REPORT Page 1 of 1 X Cassandra John APRN X CONSULTATION REPORT
--- NOTE | ~2016-09-17 | CT4 ---
[facility] A Service of [facility] & [facility] RADIOLOGY TEXT RESULTS PATIENT: AYAZ ALLRED LOCATION: C2A 227-01 : [birth year] UNIT #: [id number] AGE: [address]: Rk Stark MD SEX: F ORDER DR: [id number] [facility] [address] [facility] [address] [facility]. [place], [place] [address] [id number] I MR#: [id number] Acc #: [id number] NAME: AYAZ ALLRED : 1965 SEX: F STUDY DATE/TIME: 09/17/2016 21:58 UNIT: C2A ROOM: 227 STUDY DESCRIPTION: CT Abd and Pelv Wo Cont Attending Physician: Rk Stark Jr., M.D. Ordering Physician: Rk Stark Jr., M.D. Primary Care Physician: Nicole Green M.D. MEDICAL IMAGING REPORT This report is preliminary unless electronic signature is present EXAM CT abdomen and pelvis, noncontrast, 09/17/2016. HISTORY 51-year-old female admitted to the hospital today with abdomen pain and Tawnya esophagitis. Colonoscopy was performed today (no details are available). The patient describes a 6-month history of intermittent abdominal pain. TECHNIQUE CT examination of the abdomen and pelvis was performed without oral or IV contrast as ordered. This CT exam was performed with one or more of the following radiation dose reduction techniques: automatic exposure control, adjustment of mA and/or kV according to patient size, and iterative reconstruction. The lack of administered contrast significantly limits this study, particularly for evaluation of the GI tract. ABDOMEN FINDINGS The examination shows hmtx-pe-[id number] generalized dilatation of the stomach, small bowel and colon to about the level of the upper descending colon. Presumed postoperative changes of right hemicolectomy. No convincing evidence of mechanical bowel obstruction. Note is made of this segmental proximal small bowel intussusception in the left mid abdomen, which could be a transient finding. Followup barium small bowel examination may be helpful. Cholecystectomy. No bile duct dilatation. Liver, pancreas and spleen are normal in size and appearance, as imaged. Tiny nonobstructing calculus left mid kidney. Both kidneys are otherwise negative. Normal-caliber abdominal aorta. No mass, adenopathy or fluid collection is visible within the abdomen or pelvis with technical limitations as noted above. PELVIS FINDINGS [facility] A Service of [facility] & [facility] RADIOLOGY TEXT RESULTS PATIENT: AYAZ ALLRED LOCATION: A 227-01 : [birth year] UNIT #: [id number] AGE: [address]: Rk Stark MD SEX: F ORDER DR: Hysterectomy. Urinary bladder and rectum are within normal limits. Limited lung base images show no active disease. Postop changes lower lumbar spine fusion surgery. IMPRESSION 1. Vhjx-cm-oguyqyhn generalized dilatation of fluid and air filled stomach, small bowel and proximal colon following colonoscopy procedure earlier today. No free intraperitoneal air. 2. Postop changes presumed right hemicolectomy. 3. Short segment small bowel intussusception involving jejunum in the left mid abdomen. This may be a transient physiologic finding, but followup barium small bowel examination may be helpful for further evaluation of this segment. 4. Cholecystectomy and hysterectomy. 5. Multiple ill-defined subcutaneous nodularity in the anterior abdominal wall likely related to subcutaneous medication injection. Dictated by... Arthur Nicolas M.D. THIS IS AN ELECTRONICALLY VERIFIED REPORT Arthur Nicolas M.D. at 09/18/2016 10:02 PM Courtney TD: 09/18/2016 10:11 JOB #: [id number] MEDICAL IMAGING REPORT Page 1 of 1 COPY
--- NOTE | ~2016-09-17 | DS ---
Unit #: [id number] #: [id number] Patient: AYAZ ALLRED [id number] [facility]. [place], [place] [address] [id number] I MR#: [id number] NAME: AYAZ ALLRED ROOM: 227 Age: 51 Sex: F Admission Date: 09/17/2016 : 1965 Discharge Date: 09/19/2016 Attending Physician: Rk Stark Jr., M.D. Primary Care Physician: Nicole Green M.D. DISCHARGE SUMMARY DISCHARGE DIAGNOSES 1. Abdominal pain with multiple incisional hernias and lack of abdominal wall musculature. 2. Tawnya esophagitis on endoscopy. 3. Breakthrough seizure activity. 4. History of aortic valve replacement and ascending aorta replacement. OPERATIVE PROCEDURES Outpatient upper and lower endoscopy. HISTORY OF PRESENT ILLNESS/HOSPITAL COURSE 51-year-old white female who was admitted after having scopes done. See notes from scopes. The reason why she was admitted was for some abdominal pain. CT scan was obtained that showed a lot of gas in the small bowel consistent with efforts from her scope. Diet was gradually increased. She was seen by medicine for her medical issues also and they managed those appropriately. She is ready to be discharged after the gas has been relieved. She had tolerated her diet. She will come back to see Dr. Stark in the office in two weeks. Dictated by... James Mckeon M.D. BOSTON/teddy TD: 09/20/2016 10:26 JOB #: [id number] DISCHARGE SUMMARY Page 1 of 1 X James Mckeon MD X DISCHARGE SUMMARY
[~2016-09-17 12:35] MED LIST changes: +AMBIEN CR12.5 MG/BL PO; +COMBIVENT U/D3 M2 INH; +DOXYCYCLINE150 MG PO; +PREDNISONE PO; +SEROQUEL400 MG PO
[2016-09-17] MEDS ORDERED: MEVACOR10 MG PO (14:09)
[2016-09-17] MEDS ORDERED: SYMBICORT INH (14:09)
[2016-09-17] MEDS ORDERED: ALBUTEROL20 ml (14:09)
[2016-09-17 21:04] LABS: HEMATOCRIT 44.3 % (35.0-45.0); HEMOGLOBIN 15.1 gm/dL (12.0-16.0); MEAN CORPUSCULAR HEMOGLOBIN 31.7 PG (28-34); MEAN CORPUSCULAR HGB CONC 34.1 g/dL (30-36); MEAN PLATELET VOLUME 7.3 FL (6.5-11.5); RED BLOOD COUNT 4.77 X10e (3.90-5.30); RED CELL DISTRIBUTION WIDTH 14.2 % (11.0-15.5)
[2016-09-17 21:16] LABS: BUN/CREATININE RATIO 18.57; CALCIUM SERUM 9.5 mg/dL (8.4-10.2); CREATININE SERUM 0.7 mg/dL (0.6-1.4); GLOM FILT RATE Estimated 100.3 mL/min (>60); POTASSIUM 3.9 mmol/L (3.5-5.1)
[2016-09-19 06:45] LABS: HEMATOCRIT 40.8 % (35.0-45.0); HEMOGLOBIN 13.3 gm/dL (12.0-16.0); MEAN CORPUSCULAR HEMOGLOBIN 31.1 PG (28-34); MEAN CORPUSCULAR HGB CONC 32.7 g/dL (30-36); MEAN PLATELET VOLUME 7.9 FL (6.5-11.5); RED BLOOD COUNT 4.29 X10e (3.90-5.30); RED CELL DISTRIBUTION WIDTH 14.3 % (11.0-15.5); WHITE BLOOD COUNT 4.6 X10e3 (4.0-10.5)
[2016-09-19 07:27] LABS: BUN/CREATININE RATIO 18.57; CREATININE SERUM 0.7 mg/dL (0.6-1.4); GLOM FILT RATE Estimated 100.3 mL/min (>60); MAGNESIUM 1.6 mg/dL (1.6-3.0); POTASSIUM 4.2 mmol/L (3.5-5.1)
[2016-09-19] MEDS ORDERED: NILSTAT PO (07:33)
[2016-09-19] MEDS ORDERED: CARAFATE1 GM PO (07:35)
[2016-10-17] MEDS ORDERED: NEURONTIN100 MG PO (12:42)
[2016-10-17] MEDS ORDERED: PHENERGAN25 MG PO (12:42)
[2016-10-17] MEDS ORDERED: AMBIEN12.5 M1 PO (12:43)
[2016-10-24] MEDS ORDERED: LYRICA75 MG PO (16:51)
[2016-10-24] MEDS ORDERED: FLEXERIL10 MG PO (16:51)
[2016-10-24] MEDS ORDERED: LOVASTATIN10 MG PO (16:52)
== END 2016-09-19 09:05 | disposition home or self-care (01) | DRG 368 ==
LOC: COPS 12:35 → C2A 17:20 → COPS 09-27 13:30
PROVIDERS: Internal Medicine; Surgery
PROC: 0DB78ZX Excision of Stomach, Pylorus, Via Natural or Artificial Opening Endoscopic, Diagnostic (ICD-10-PCS; principal; 2016-09-17 14:30)
PROC: 0DJD8ZZ Inspection of Lower Intestinal Tract, Via Natural or Artificial Opening Endoscopic (ICD-10-PCS; 2016-09-17 14:30)
PROC: 02HV33Z Insertion of Infusion Device into Superior Vena Cava, Percutaneous Approach (ICD-10-PCS; 2016-09-17 14:30)
PROC: B548ZZA Ultrasonography of Superior Vena Cava, Guidance (ICD-10-PCS; 2016-09-17 14:30)
DX: B37.81 Candidal esophagitis (principal); K29.71 Gastritis, unspecified, with bleeding; F41.9 Anxiety disorder, unspecified; F32.9 Major depressive disorder, single episode, unspecified; Z95.2 Presence of prosthetic heart valve; Z86.711 Personal history of pulmonary embolism; Z86.718 Personal history of other venous thrombosis and embolism; E11.9 Type 2 diabetes mellitus without complications; J44.9 Chronic obstructive pulmonary disease, unspecified; Z90.49 Acquired absence of other specified parts of digestive tract; Z90.710 Acquired absence of both cervix and uterus; Z88.1 Allergy status to other antibiotic agents; Z88.2 Allergy status to sulfonamides; G89.29 Other chronic pain; K64.8 Other hemorrhoids; G40.909 Epilepsy, unspecified, not intractable, without status epilepticus
CPT/HCPCS: 74176; 80048; 82947; 83735; 85027; 87077; 88305; 88312; 94640; 94760; J1650; J2060; J2250; J2270; J2405

== ENCOUNTER → 2016-10-17 | Outpatient (CLI) | payer MEDICARE ==
[~2016-10-17] MED LIST changes: +ALBUTEROL20 ml; +CARAFATE1 GM PO; +LOVASTATIN10 MG PO; +MEVACOR10 MG PO; +NEURONTIN100 MG PO; +NILSTAT PO
--- NOTE | ~2016-10-17 | EKG ---
PATIENT: AYAZ ALLRED UNIT #: [id number] Ventricular Rate: 65 BPM Atrial Rate: 65 BPM P-R Interval: 140 ms QRS Duration: 86 ms Q-T Interval: 438 ms QTC Calculation(Bezet): 455 ms P Manson: 70 degrees Calculated R Manson: 32 degrees Calculated T Manson: 84 degrees Diagnosis Line: Normal sinus rhythm Diagnosis Line: Left atrial enlargement Diagnosis Line: Borderline ECG Diagnosis Line: When compared with ECG of 01-APR-2016 12:55, Diagnosis Line: No significant change was found Diagnosis Line: Confirmed by CHARMAINE CABAN MD ([id number]) on Diagnosis Line: 10/18/2016 10:52:21 AM INTERPRETING MD: MEE ASHLEY
[2016-10-17 12:15] LABS: HEMATOCRIT 42.4 % (35.0-45.0); HEMOGLOBIN 14.8 gm/dL (12.0-16.0); MEAN CELL VOLUME 92.3 FL (83-96); MEAN CORPUSCULAR HEMOGLOBIN 32.1 PG (28-34); MEAN CORPUSCULAR HGB CONC 34.8 g/dL (30-36); MEAN PLATELET VOLUME 6.9 FL (6.5-11.5); RED BLOOD COUNT 4.6 X10e (3.90-5.30); RED CELL DISTRIBUTION WIDTH 14.1 % (11.0-15.5); WHITE BLOOD COUNT 4.9 X10e3 (4.0-10.5)
[2016-10-17 12:26] LABS: PROTHROMBIN TIME (PATIENT) 11.1 SECONDS (10.0-11.7)
[2016-10-17 12:42] LABS: BILIRUBIN,TOTAL 0.5 mg/dL (0.2-2.0); CALCIUM SERUM 9.2 mg/dL (8.4-10.2); CREATININE SERUM 0.7 mg/dL (0.6-1.4); GLOM FILT RATE Estimated 100.3 mL/min (>60); PROTEIN TOTAL SERUM 7.5 g/dL (6.0-8.3)
== END | disposition home or self-care (01) ==
LOC: CAMB 10:47
PROVIDERS: Surgery
DX: Z01.818 Encounter for other preprocedural examination (principal)
CPT/HCPCS: 36415; 80053; 85027; 85610; 93005

== ENCOUNTER → 2016-10-23 | Outpatient (CLI) | payer MEDICARE ==
--- NOTE | ~2016-10-23 | XA166 ---
[facility] A Service of [facility] & [facility] RADIOLOGY TEXT RESULTS PATIENT: AYAZ ALLRED LOCATION: CIVR : [birth year] UNIT #: [id number] AGE: [address]: Rk Stark MD SEX: F ORDER DR: [id number] [facility]. [place], [place] [address] [id number] MR#: [id number] Acc #: [id number] NAME: AYAZ ALLRED : 1965 SEX: F STUDY DATE/TIME: 10/23/2016 10:27 UNIT: [facility] ROOM: STUDY DESCRIPTION: XA PICC Line Placement WO Port Attending Physician: Rk Stark Jr., M.D. Referring Physician: Rk Stark Jr., M.D. Ordering Physician: Rk Stark Jr., M.D. Primary Care Physician: Nicole Green M.D. MEDICAL IMAGING REPORT This report is preliminary unless electronic signature is present EXAM PICC line insertion 10/23/2016 HISTORY IV access needed. PRE-PROCEDURE The procedure was explained to the patient and/or patient sales representative sales manager including risks, benefits, potential complications and potential for alternative forms of treatment. Informed consent was obtained, and prior to initiating the procedure a formal timeout procedure was performed. PROCEDURE Using full standard sterile barrier technique, including caps, gowns, gloves, masks, as well as sterile skin preparation and standard sterile draping, the right arm was prepped and draped in the usual fashion, and real-time sterile ultrasound guidance was used to localize an arm vein and to confirm vessel patency. A hard copy ultrasound image was recorded. After local anesthesia with 1% Xylocaine, the vein was punctured using real-time sterile ultrasound guidance, and an 0.018 guidewire was advanced into the superior vena cava, using fluoroscopic guidance. A 4 [place] single-lumen PICC was then measured and deployed with the tip positioned in the superior vena cava. The position of the line was documented with a radiographic image. The line was secured in place with an adhesive dressing and an antibiotic patch was applied. Total fluoro time was 0.1 minutes. IMPRESSION Successful placement of a 4 [place] single lumen Power PICC via the right arm under ultrasound and fluoroscopic guidance. The tip of the PICC is in good position in the superior vena cava. Single spot image. [facility] A Service of [facility] RADIOLOGY TEXT RESULTS PATIENT: [facility]YAZ ALLRED [id number] [birth year] UNIT #: [id number] AGE: [address]: Rk Stark MD SEX: F ORDER DR: Dictated by... Romero Horton M.D. THIS IS AN ELECTRONICALLY VERIFIED REPORT Romero Horton M.D. at 10/24/2016 2:06 PM SERG/garima TD: 10/24/2016 06:40 JOB #: [id number] MEDICAL IMAGING REPORT Page 1 of 1 COPY
== END | disposition home or self-care (01) ==
LOC: CIVR 09:35
DX: I87.2 Venous insufficiency (chronic) (peripheral) (principal)
CPT/HCPCS: 76937; 77001; C1751; J0690